=== PATIENT | female | born 1965 | race Caucasian/White ===

== ENCOUNTER 2023-09-29 20:10 | Emergency (ER) | payer BC, SELFPAY ==
[2023-09-29 20:11] VITALS: BP 104/74
--- NOTE | 2023-09-29 20:53 | ED.MUSCINJ ---
HPI-Injury
General
Chief Complaint: Musculo-Skeletal Complaint
Source: patient
Exam Limitations: none
Time Seen by Provider: 09/29/23 20:30
Nursing documentation reviewed up to this point in time: agreed with
History of Present Illness-Injury
Initial Injury comments:
58-year-old female with history of hypothyroidism, right shoulder surgery by Dr. Salas, states her right knee has been bothering her off and on for months, it has gotten worse in the past 3 days. [place] the [place] and could
not walk as much due to the pain in her right knee. She has been icing it and taking ibuprofen with some relief. She was riding in car on way home from the [facility] today, felt the knee getting tighter, they stopped at [facility] and she went to get out of
the car and could not bear weight due to the pain.
Past History
Past History
ED Past Medical History: Hypothyroidism (No history of aortic dissection or aneurysm)
ED Past Surgical History: Orthopedic (R shoulder surgery)
Social History
Tobacco: Non-smoker
Alcohol: Occasional
Personal:
Living: with family
Employment: Employed
Family History
Family History: Negative Diabetes, Hypertension, Early CAD, CAD, Asthma or Cancer
Review of Systems
Review of Systems
Allergies reviewed?: Yes
All Other Systems: ROS reviewed and negative except as documented in HPI and ROS
Constitutional: Denies fever
Musculoskeletal: Reports other (pain right knee with swelling)
Skin: Reports no symptoms
Musculoskeletal Injury Exam
Musculoskeletal Injury Exam
Right Knee:
Pain with Movement?: Moderate
Tender to palpation?: Moderate
Soft tissue swelling?: Moderate
Joint effusion?: Moderate
Crepitus with movement?: No
Range of motion: Limited
Distal skin color and temperature: normal-warm & good color
Capillary Refill: normal
Normal distal neurovascular exam?: Yes
Phy Exam
Physical Exam
Physical Exam:
PHYSICAL EXAMINATION:
General: no apparent distress, not acutely ill
Neuro: alert and oriented.
Psychiatric: well kept. interactive and cooperative
Musculoskeletal: Moves with ease
Skin: Warm, pink.
Injury Course
Orders/Labs/Results
Orders:
Orders
09/29/23 20:14
Knee, Right 4 or More Views [CR Knee- Right 4 Or More View*] Urgent
Comment:
Reason For Exam: pain, swelling
09/29/23 21:10
Leander Wrap Right-Treatment ONCE
Knee Immobilizer Right-Treatme ONCE
Procedures
Incision/Drainage/Joint Aspiration
Right Knee:
Anethesia: 1% Lidocaine
Preparation: cleaned with alcohol wipe
Type of procedure: aspiration
Nature of site: other (hemarthrosis)
How much fluid was obtained?: number in mls (25)
Fluid description: bloody
Treatment: bandaid applied
Additional information:
Leander wrap applied
MDM/Problems Addressed
Differential Diagnosis Includes:
arthritis, DJD, sprain, meniscus tear
MDM/Problems Addressed:
58-year-old female with history of hypothyroidism, right shoulder surgery by Dr. Salas, states her right knee has been bothering her off and on for months, it has gotten worse in the past 3 days. [place] was [place] the [facility] for the past week and could
not walk as much due to the pain in her right knee. She has been icing it and taking ibuprofen with some relief. She was riding in car on way [place] from the [place] today, felt the knee getting tighter, they stopped at [facility] and she went to get out of
the car and could not bear weight due to the pain.
Xray right knee initially read by this examiner, moderate suprapatellar effusion, no bony abnormality
Knee aspirated for 25 mL of daniel blood. Patient tolerated procedure well.
Leander wrap and knee immobilizer applied
She has seen Dr. Salas in the past and will follow-up with him
*Critical Care Note
Total Time (30-74mins, 75-104mins- exclusive of procedures): Not Applicable
ED Attending Note
-
Portions of this chart may have been created with voice recognition software.� Occasional wrong word or��sound alike� substitutions may have occurred due to the inherent limitations of voice recognition software.
Discharge Plan
Departure
Patient Disposition: Home (Routine Discharge)
Date of Disposition: 09/29/23
Time of Disposition: 21:19
Patient with high blood pressure during this ER visit?: No
Condition: Good
Discharge Problem:
Hemarthrosis
Instructions: Knee Immobilizer (DC), Meniscal Tear (DC), Hemarthrosis (DC), Using Cold for Pain
Prescriptions:
No Action
Control
Synthroid
PO DAILY
Patient Comments:
does not know dose
ibuprofen 800 MG tablet
800 mg PO Q6HPRN PRN (Reason: pain with food) Qty: 30 0RF
cyclobenzaprine [Flexeril] 10 MG tablet
10 mg PO TIDPRN PRN (Reason: muscle spasm) Qty: 30 0RF
diazepam [Valium] 2 mg tablet
2 mg PO BID PRN (Reason: muscle spasm) Qty: 10 0RF
diclofenac sodium 75 mg tablet,delayed release (DR/EC)
75 mg PO BID Qty: 10 0RF
prednisone 20 mg tablet
40 mg PO DAILY Qty: 10 0RF
Referrals:
Javier Salas MD [Active] - Call in 1-3 days for appt
Stand Alone Forms: Return to Work
Activity Restrictions/Additional Instructions:
As we discussed, wear the knee immobilizer at all times when up and around until further instructed by the orthopedic doctor.
Tylenol or ibuprofen as needed for pain.
When you are resting, take the knee immobilizer off and apply cool compress to the knee 20 minutes off and on throughout the day is much as you can in the next 2 days.
Interventions
Interventions:
*Risk Screen - Suicide Last Done: 09/29/23 21:39
*General Assessment Last Done: 09/29/23 21:39
*Neglect/Abuse Screening Last Done: 09/29/23 21:39
*Nursing Disposition Last Done: 09/29/23 21:39
ED-Musculoskeletal Assessment Last Done: 09/29/23 21:12
Discharge Date and Time
Discharge Date/Time: 09/29/23 21:40
Print Language: HEBREW
== END 2023-09-29 21:40 | disposition home or self-care (01) ==
LOC: EMR 20:10
PROVIDERS: EMERGENCY PHYSICIAN Emergency Medicine; FAMILY PHYSICIAN Family Medicine
DX: M25.061 Hemarthrosis, right knee (principal); R26.2 Difficulty in walking, not elsewhere classified; M25.561 Pain in right knee; M25.461 Effusion, right knee; E03.9 Hypothyroidism, unspecified; R01.1 Cardiac murmur, unspecified
CPT/HCPCS: 20610; 99283; 29505; 73564